=== PATIENT | male | born 1990 | race African-American/Black ===

== ENCOUNTER 2023-01-02 02:20 | Emergency (ER) | payer BC ==
[~2023-01-02] VITALS: Ht 185.4 cm; Wt 77.1 kg
[2023-01-02 03:05] VITALS: BP 148/107; TEMP 98.5
[2023-01-02] MEDS ORDERED: KETOROLAC TROMETHAMINE INJ 60 MG/2 ML VIAL IM ONE ×2 (03:11→03:30)
[2023-01-02] MEDS ORDERED: predniSONE 20 MG TABLET ONE (03:11)
[2023-01-02] MEDS ORDERED: CYCL5TAB PO (03:12)
[2023-01-02] MEDS ORDERED: PRED20TA PO (03:12)
[2023-01-02] MEDS ORDERED: KETO10TA2 PO (03:12)
[2023-01-02] MEDS ORDERED: predniSONE 20 MG TABLET PO ONE (03:30)
[2023-01-02 04:31] VITALS: O2SAT 99
== END 2023-01-02 04:32 | disposition home or self-care (01) ==
LOC: ER 02:22
DX: M54.2 Cervicalgia (principal)
CPT/HCPCS: 99283; 96372; J7512; J1885